=== PATIENT | male | born 1960 | race Caucasian/White ===

== ENCOUNTER 2021-01-09 01:10 | Day surgery (SDC) | payer BC, SELFPAY ==
--- NOTE | 2021-01-02 08:33 | P.HP_ITS ---
History of Present Illness History of Present Illness Consent: Risks, benefits, and alternatives have been discussed and questions answered. Patient agrees to proceed with procedure. Chief complaint: Lt Hydrocele Narrative: Be Houser is a 60 year old male who is status post left hydrocelectomy in 2018. He did well until past several months when he has developed a slow reaccumulation of swelling in his left hemiscrotum. Examination by my partner was consistent with a recurrent hydrocele and, after discussion, he elects for repeat hydrocelectomy. He is aware the risk including, but not limited to, adverse cardiopulmonary events, recurrent hydrocele, scrotal hematoma. Review of Systems Cardiovascular: Cardiovascular: Denies chest pain, Denies lightheadedness, Denies palpitations and Denies dyspnea Respiratory: Respiratory: Denies dyspnea Gastrointestinal: Gastrointestinal: Denies diarrhea, Denies nausea and Denies vomiting Genitourinary: Genitourinary: Denies hematuria and Denies dysuria Endocrine: Endocrine: Denies palpitations Meds Home Medications and Allergies Allergies Allergy/AdvReac Type Severity Reaction Status Date / Time No Known Allergies Allergy Unverified 01/20/18 09:38 Exam Const: General: no acute distress Resp: Effort & Inspection: normal respiratory effort GI: Inspection: non-distended GI Palp: No abdominal tenderness and No Guarding due to palpation present (GI) Auscultation: normal bowel sounds : Scrotum: scrotal swelling (left) Assessment and Plan Assessment and plan (1) Left hydrocele: Code(s): N43.3 - Hydrocele, unspecified Status: Acute Assessment and Plan: * Left hydrocelectomy
[2021-01-06 13:24] VITALS: BMI 27.3
[2021-01-09] VITALS (7 sets, daily range): BP systolic 95–136; BP diastolic 66–88; PULSE 57–97; RESP 12–16; TEMP 36.1–36.2; O2SAT 98–100
--- NOTE | 2021-01-09 06:44 | WPDHPUPDATE1 ---
History and Physical Update Update Date/Time: 01/09/21 06:44 History and Physical has been reviewed, including an updated exam of the patient. There are NO changes in the patient's condition. Risks, benefits, and alternatives have been discussed and questions answered. Patient agrees to proceed with procedure.
[2021-01-09] MEDS: LACTATED RINGERS 1,000 ML 30 ML IV CONT ×2 (07:16→09:31)
--- NOTE | 2021-01-09 08:25 | P.PNAN_ITS ---
Anes - Initial Pre Proc Eval Procedure: Operation Date: 01/09/21 08:45 Proposed Procedures p Left Hydrocelectomy - Bobby Mesa MD Date/Time: 01/09/21 08:25 Surgeon: Bobby Mesa MD Pre Op Diagnosis: Lt Hydrocele Patient Data Age: 60 Gender: M Height: 1.93 m Weight: 101 kg Last Vital Signs Temp 97.2 F L 01/09/21 07:03 Pulse 83 01/09/21 07:03 Resp 16 01/09/21 07:03 BP 136/88 01/09/21 07:03 Pulse Ox 99 01/09/21 07:03 Allergies Allergy/AdvReac Type Severity Reaction Status Date / Time No Known Allergies Allergy Unverified 01/09/21 07:04 Home Medications Medication Instructions Recorded Confirmed Type tamsulosin 0.4 mg PO DAILY 01/06/21 01/09/21 History Patient hx anesthesia problems: none Family hx anesthesia problems: none Results Review: All pre-operative results and documents have been reviewed as part of the pre-operative evaluation. [facility] Social History Social History Smoking status: Never smoker Alcohol intake: current Drinks per week: 3 Substance use: never Living arrangements: with family Anes - Eval Final PreProcedure Day of Procedure 01/09/21 08:25 Patient weight: overweight Heart: regular rate and rhythm Lungs: clear to auscultation Airway: Mallampati scale class II Neurological: alert and oriented Last oral intake: >/= 8 hours ASA classification: II Emergent: no Anesthetic plan: proceed Anesthesia type and monitoring: general LMA and standard monitoring Results Review: All pre-operative results and documents have been reviewed as part of the pre-operative evaluation. Informed Consent: The patient's anesthetic plan and its attendant risks and benefits were discussed with the patient/family/POA. Questions were solicited and answers provided to the satisfaction of the patient/family/POA.
[2021-01-09] MEDS: ceFAZolin 2 GM/D5W 50 ML 2 GM/50 ML BAG IVPB (08:38)
[2021-01-09] MEDS: LIDO 1%/EPINEPHRINE 1:100,000 50 ML VIAL 10 ML INFILTRATE (09:13)
--- NOTE | 2021-01-09 09:13 | W.PM.PROC2 ---
Procedure Note - Detailed Date of Procedure 01/09/21 Pre-op Diagnosis Left hydrocele Post-op Diagnosis same Procedure Performed Left hydrocelectomy Surgeon Bobby Mesa MD Anesthesia general Description of Procedure The patient was brought to the operative suite where he was prepped and draped in routine sterile fashion while in a supine position after the uneventful induction of a general LMA anesthetic. An incision was made in the median raphe of the scrotum and dissection was carried into the left tunica vaginalis. Clear, straw-colored fluid was drained. The testicle was examined and found to be both visibly and palpably normal. The tunica was everted in a bottle-neck fashion using a running 4-0 chromic. The testicle was restore returned to an orthotopic positioned. The dartos muscle was closed with a running 4-0 chromic and the skin was likewise closed with a running 4-0 chromic. Estimated blood loss throughout this procedure was 0cc . Patient tolerated the procedure well and was taken to the recovery room in good condition. Estimated Blood Loss 0 Drains No Packing No Pathology none sent Complications No immediate complications Condition stable Disposition PACU
[2021-01-09] MEDS: fentaNYL CITRATE INJ (*CRX) 100 MCG/2 ML VIAL 25 MCG IV PUSH ×4 (10:01→10:16)
[2021-01-09] MEDS: oxyCODONE HCL (*CRX) 5 MG TAB IR PO (10:34)
== END 2021-01-09 11:15 | disposition home or self-care (01) ==
PROVIDERS: PCP Family Medicine; Visit Provider Urology
PROC: (CPT 55040; principal; 2021-01-09 08:45)
DX: N43.3 Hydrocele, unspecified (principal); N50.89 Other specified disorders of the male genital organs
CPT/HCPCS: 55060; A9270; J0690; J1100; J2250; J2405; J2704; J3010; J7120